=== PATIENT | female | born 1965 | race Two or more races ===

== ENCOUNTER 2024-09-23 06:57 | Day surgery (SDC) | payer OTHER ==
[2024-09-23] MEDS ORDERED: DEXAMETHASONE SODIUM PHOSPHATE 4 MG/ML VIAL ONE (07:23)
[2024-09-23] MEDS ORDERED: LIDOCAINE HCL 1%/EPINEPHRINE 20ML VIAL IJ ONE ×2 (07:35→08:30)
[2024-09-23] MEDS ORDERED: CEFAZOLIN SODIUM 1,000 MG VIAL ONE (07:42)
[2024-09-23] MEDS ORDERED: DEXAMETHASONE SODIUM PHOSPHATE 4 MG/ML VIAL IV ONE (08:30)
[2024-09-23] MEDS ORDERED: CEFAZOLIN SODIUM 1,000 MG VIAL IV ONE (08:30)
[2024-09-23] MEDS ORDERED: OXYMETAZOLINE HCL 15 ML NASAL DROPS NASAL ONE (08:30)
== END 2024-09-23 13:10 | disposition home or self-care (01) ==
LOC: CIR.AMB 06:57
PROVIDERS: ATTEND Otolaryngology
DX: J38.1 Polyp of vocal cord and larynx (principal); J38.3 Other diseases of vocal cords; R49.0 Dysphonia